=== PATIENT | female | born 1985 | race African-American/Black ===

== ENCOUNTER 2019-03-05 17:22 | Emergency (ER) | payer MEDICAID, OTHER ==
[~2019-03-05] VITALS: Ht 162.6 cm; Wt 86.2 kg
[2019-03-05 17:40] VITALS: BP 146/95
--- NOTE | 2019-03-05 17:40 | NUR ---
ED Nurse Note: pt walked in d/t sore throat x 7 days. denies fever, pt has horseness of voice, denies sob. will continue to monitor.
--- NOTE | 2019-03-05 18:09 | Emergency Room Report ---
History of Present Illness General Chief Complaint: Sore Throat Source: Patient Present Illness HPI 34-year-old female presents to the emergency department complaining of 9 out of 10 severity sore throat, subjective fevers and chills and generalized fatigue x1 week. Patient reports her symptoms have been progressive she has been taking [id number]-[id number] medications without any relief. Patient denies cough she denies nose nasal congestion, neck pain or stiffness, headache or photophobia. Denies recent travel or ill contacts. reports loss of voice. Pain exacerbated with swallowing. Allergies: Coded Allergies: No Known Allergies (Unverified , 03/05/19) Patient History Past Medical History: see triage record Past Surgical History: none Pertinent Family History: none Last Menstrual Period: 02/09/19 Now: No : 1 Para: 1 Reviewed Nursing Documentation: PMH: Agreed; PSxH: Agreed Nursing Documentation-PMH Past Medical History: No History, Except For Hx Hypertension: Yes Review of Systems All Other Systems: negative except mentioned in HPI Physical Exam Vital Signs Date Time Temp Pulse Resp B/P (MAP) Pulse Ox O2 Delivery O2 Flow Rate FiO2 03/05/19 17:27 98.8 99 18 146/95 (112) 98 Room Air Sp02 EP Interpretation: reviewed, normal General Appearance: no apparent distress, alert, GCS 15, non-toxic Head: normocephalic, atraumatic Eyes: bilateral eye normal inspection, bilateral eye PERRL ENT: hearing grossly normal, normal voice, TMs + canals normal, moist mucus membranes, dry mucus membranes, tonsillar swelling, pharyngeal erythema, tonsillar exudate Neck: full range of motion, no meningismus, no bony tend Respiratory: chest non-tender, lungs clear, normal breath sounds, speaking full sentences Cardiovascular #1: regular rate, rhythm Musculoskeletal: back normal, gait/station normal, normal range of motion, non- tender Neurologic: alert, oriented x3, responsive, motor strength/tone normal, sensory intact, speech normal, grossly normal Psychiatric: judgement/insight normal Lymphatic: no adenopathy Medical Decision Making PA Attestation Dr. Quintero is my supervising Physician whom patient management has been discussed with. Diagnostic Impression: Primary Impression: Acute bacterial pharyngitis ER Course 34-year-old female presents to the emergency department complaining of 9 out of 10 severity sore throat, subjective fevers and chills and generalized fatigue x1 week. Patient reports her symptoms have been progressive she has been taking bvpb-wet-[id number] medications without any relief. Patient denies cough she denies nose nasal congestion, neck pain or stiffness, headache or photophobia. Denies recent travel or ill contacts. reports loss of voice. Pain exacerbated with swallowing. Ddx considered but are not limited to: pharyngitis, strep, TOPPIECE CHOPPER, ludwigs angina, URI Vital signs: are WNL, pt. is afebrile H&PE are most consistent with: pharyngitis presumed strep. ORDERS: None required at this time as the diagnosis is clinical ED INTERVENTIONS: none required at this time. DISCHARGE: At this time pt. is stable for d/c to home. Will provide printed patient care instructions, and any necessary prescriptions. Care plan and follow up instructions have been discussed with the patient prior to discharge. Last Vital Signs Date Time Temp Pulse Resp B/P (MAP) Pulse Ox O2 Delivery O2 Flow Rate FiO2 03/05/19 17:27 98.8 99 18 146/95 (112) 98 Room Air Disposition: HOME, SELF-CARE Condition: Stable Departure Forms: Return to Work Return to Work Date: Mar 09, 2019 Work Restrictions: None Other Restrictions: May return Sooner if Symptoms have resolved. Return to Full Activity: Mar 09, 2019 Patient Instructions: Strep Throat Additional Instructions: Take medications as directed. Follow up with a Primary Care Provider in 3 days, even if your symptoms have resolved. --Please review list of primary care clinics, if you do not already have a primary care provider Return sooner to ED if new symptoms occur, or current symptoms become worse. - Please note that this Emergency Department Report was dictated using [employer] oven tender technology software, occasionally this can lead to erroneous entry secondary to interpretation by the dictation equipment. Araceli De Leon Mar 05, 2019 18:09
[2019-03-05] MEDS ORDERED: AMOXICILLIN500 MG ORAL (18:11)
[2019-03-05] MEDS ORDERED: IBUPROFEN600 MG ORAL (18:11)
[2019-03-05] MEDS ORDERED: LIDOCAINE VISC100 ML ORAL (18:11)
[2019-03-05 18:18] VITALS: BP 135/90
--- NOTE | 2019-03-05 18:18 | NUR ---
ER DISCHARGE NOTE: Patient is cleared to be discharged per ERMD, pt is aox4, on room air, with stable vital signs. pt was given dc and prescription instructions, pt was able to verbalize understanding, pt id band removed without complications. pt is able to ambulate with steady gait. pt took all belongings.
== END 2019-03-05 18:18 | disposition home or self-care (01) ==
LOC: EMR 17:52
DX: J02.9 Acute pharyngitis, unspecified (principal)
CPT/HCPCS: 99281